=== PATIENT | male | born 1985 | race Caucasian/White ===

== ENCOUNTER 2016-11-08 12:11 | Emergency (ER) | payer OTHER ==
[2016-11-08 12:20] VITALS: BP 121/90; PULSE 80; RESP 15; TEMP 97.4; O2SAT 98
--- NOTE | 2016-11-08 13:10 | EDPHY ---
H & P Time Seen by Provider: 11/08/16 12:19 HPI/ROS: CHIEF COMPLAINT: Right foot injury HISTORY OF PRESENT ILLNESS: 31-year-old male presents to the emergency department with isolated injury to the right foot. Patient [place] that [place] and somehow twisted his right foot. He did not fall to the ground. He felt a loud pop and now has pain to the dorsal aspect of the right foot. He is unable to bear full weight secondary to pain. Denies hitting his head or losing consciousness. Denies any other injury or trauma. ROS: Denies right ankle pain, right calf or knee pain. Denies hip pain. Past Medical/Surgical History: Negative Social History: and lives in [place] Smoking Status: Never smoked Physical Exam: Examination the right foot reveals some mild swelling of the dorsal aspect of his right midfoot. He is diffusely tender to palpate along the metatarsals. No palpable crepitus or other bony abnormality noted. He has limited dorsiflexion especially secondary to pain. Nontender to palpate the plantar aspect of the right foot. His right ankle is stable and nontender. His right calf is nontender. There is no abrasion or puncture wound noted. No ecchymosis. He has normal sensation to light touch with normal 2 point discrimination. Strong dorsalis pedis pulse on the dorsal aspect of the right foot. His gait is not tested due to pain. Constitutional: Initial Vital Signs Temperature (C) 36.3 C 11/08/16 12:16 Heart Rate 80 11/08/16 12:16 Respiratory Rate 15 11/08/16 12:16 Blood Pressure 121/90 H 11/08/16 12:16 O2 Sat (%) 98 11/08/16 12:16 Allergies/Adverse Reactions: latex Allergy (Verified 11/08/16 12:15) Home Medications: Medication Instructions Recorded Albuterol 11/08/16 oxyCODONE/APAP 5/325 [Percocet 1 - 2 tab PO Q4-6PRN PRN #15 tab 11/08/16 5/325] MDM/Departure - MDM Diagnostics: X-rays of the right foot reveal no fractures. This is reviewed by myself the PAC system as well as by the radiologist. Procedures: Patient was placed in a postop shoe for comfort and support and examined post application in good placement with normal MANAGEMENT LIAISON. The patient declined Cerda boot. ED Course/Re-evaluation: 31-year-old male presents with right foot injury. X-rays reveal no fractures. He was placed in a postop shoe for comfort and support given orthopedic referral. - Depart Disposition: Home, Routine, Self-Care Clinical Impression: Right foot sprain Qualifiers: Encounter type: initial encounter Qualified Code(s): S93.601A - Unspecified sprain of right foot, initial encounter Condition: Good Instructions: Foot Sprain (ED) Additional Instructions: Weight bear as tolerated. Ibuprofen 600 mg every 8 hours as needed for pain. Follow up with orthopedic surgeon this week to recheck. Return if you developed increased swelling in your foot, numbness or tingling in her toes, or if you feel worse in any way. Prescriptions: oxyCODONE/APAP 5/325 [Percocet 5/325] 1 - 2 tab PO Q4-6PRN PRN #15 tab PRN Reason: For Moderate To Severe Pain Referrals: Darrel Noel MD [Medical Doctor] - 2-3 days without fail (Orthopedic surgeon on-call)
== END 2016-11-08 13:45 | disposition home or self-care (01) ==
DX: S93.601A Unspecified sprain of right foot, initial encounter (principal); Z91.040 Latex allergy status; X58.XXXA Exposure to other specified factors, initial encounter; Y99.8 Other external cause status; Y93.01 Activity, walking, marching and hiking
CPT/HCPCS: L3260